=== PATIENT | female | born 1975 | race African-American/Black ===

== ENCOUNTER → 2017-04-22 | Day surgery (SDC) | payer OTHER ==
[~2017-04-22] VITALS: Ht 170.2 cm; Wt 81.6 kg
[~2017-04-22] MED LIST: LEVOTHYROXINE100 MC1 PO; METOPROLOL TART25 M1 PO
--- NOTE | 2017-04-28 19:20 | Operative Report ---
Operative/Inv Procedure Report Surgery Date: 04/22/17 Name of Procedure: D&C hysteroscopy Pre-Operative Diagnosis: Metromenorrhagia Post-Operative Diagnosis: Same Estimated Blood Loss: scant Surgeon/Vocational Education Teacher: JUAN PALOMO MD Anesthesia: moderate sedation Operative/Procedure Note Note: Procedure note patient was taken the operating room placed place and spine position after adequate anesthesia patient placed in dorsolithotomy position the vagina was prepped draped so fashion examination anesthesia performed at this point Calabrese speculum was placed into the vagina CO2 tenaculum was placed on the Intralipid cervix services 1229 Hegar to left insertion hysteroscope the scope was inserted and direct visualization using gas is scope was moved sharp curettage endometrial lining performed sharp curettage and cervical lining performed 2 specimen sent to pathology patient tolerated that well all instruments removed from the vagina the patient was returned spine position she was awakened from anesthesia and transported recovery room awake and alert with counts correct. Findings: Normal uterine lining no adnexal masses
== END ==
LOC: STS 01:18
DX: N92.1 Excessive and frequent menstruation with irregular cycle (principal); C81.90 Hodgkin lymphoma, unspecified, unspecified site; E03.9 Hypothyroidism, unspecified; I10 Essential (primary) hypertension; Z92.21 Personal history of antineoplastic chemotherapy
CPT/HCPCS: 81025; 88305; J2250